=== PATIENT | female | born 1970 | race Caucasian/White ===

== ENCOUNTER 2016-11-07 12:52 | Emergency (ER) | payer MEDICAID ==
[~2016-11-07] VITALS: Ht 170.2 cm; Wt 88.5 kg
[2016-11-07] MEDS ORDERED: HYDR10TA4 PO (13:27)
[2016-11-07] MEDS ORDERED: SERT100T PO (13:27)
[2016-11-07] MEDS ORDERED: CLOP75TA22 PO (13:27)
[2016-11-07] MEDS ORDERED: TRAZ100T15 PO (13:27)
[2016-11-07] MEDS ORDERED: GABA300C10 PO ×2 (13:27)
[2016-11-07] MEDS ORDERED: BUDE3CAP6 PO (13:28)
[2016-11-07] MEDS ORDERED: HYDROcodone/APAP 5/325 TABLET PO PRN (14:00)
[2016-11-07] MEDS ORDERED: HYDROcodone/APAP 5/325 TABLET ONE (14:02)
[2016-11-07 16:03] VITALS: BP 135/73
== END 2016-11-07 16:32 | disposition home or self-care (01) ==
LOC: ED 16:26
DX: S16.1XXA Strain of muscle, fascia and tendon at neck level, initial encounter (principal); S00.93XA Contusion of unspecified part of head, initial encounter; M25.522 Pain in left elbow; F17.210 Nicotine dependence, cigarettes, uncomplicated; Z88.6 Allergy status to analgesic agent; Z88.8 Allergy status to other drugs, medicaments and biological substances; Z86.73 Personal history of transient ischemic attack (TIA), and cerebral infarction without residual deficits; W19.XXXA Unspecified fall, initial encounter; Y93.89 Activity, other specified; Y92.410 Unspecified street and highway as the place of occurrence of the external cause; Y99.8 Other external cause status
CPT/HCPCS: 70450; 72125; 99284

== ENCOUNTER 2019-12-16 09:15 | Emergency (ER) | payer MEDICARE, MEDICAID ==
[~2019-12-16] VITALS: Ht 167.6 cm; Wt 66.8 kg
[~2019-12-16 09:15] MED LIST: BUDE3CAP6 PO; CLOP75TA52 PO; GABA300C10 PO; HYDR-2995 PO; SERT100T PO; TRAZ-175 PO
[2019-12-16 09:18] VITALS: BP 110/75
== END 2019-12-16 10:15 | disposition home or self-care (01) ==
LOC: ED 10:10
DX: H05.012 Cellulitis of left orbit (principal); L03.211 Cellulitis of face; G89.29 Other chronic pain; F17.200 Nicotine dependence, unspecified, uncomplicated; Z90.49 Acquired absence of other specified parts of digestive tract; Z86.73 Personal history of transient ischemic attack (TIA), and cerebral infarction without residual deficits
CPT/HCPCS: 99283; Q0177